=== PATIENT | female | born 2000 | race Caucasian/White ===

== ENCOUNTER 2024-09-28 01:24 | Emergency (ER) | payer BC ==
[~2024-09-28] VITALS: Ht 167.6 cm; Wt 61.2 kg
[2024-09-28] MEDS ORDERED: ONDANSETRON 4 MG/2 ML VIAL ONE (01:47)
[2024-09-28 01:54] LABS: BASOPHILS % (AUTO) 0.1 % (0.0-2.0); EOSINOPHILS # (AUTO) 0.1 K/uL (0.0-0.7); EOSINOPHILS % (AUTO) 0.4 % (0.0-7.0); HEMATOCRIT 45.7 % (31.2-41.9); HEMOGLOBIN 15.2 g/dL (10.9-14.3); LYMPHOCYTES # (AUTO) 0.5 K/uL (0.8-4.8); LYMPHOCYTES % (AUTO) 3.3 % (20.5-51.5); MEAN CORPUSCULAR HEMOGLOBIN 29.2 uug (24.7-32.8); MEAN CORPUSCULAR HGB CONC 33 g/dL (32.3-35.6); MONOCYTES # (AUTO) 0.5 K/uL (0.1-1.30); MONOCYTES % (AUTO) 3.5 % (0.0-11.0); NEUTROPHILS # (AUTO) 13.6 K/uL (1.8-8.9); NEUTROPHILS % (AUTO) 92.7 % (38.5-71.5); PLATELET COUNT (AUTO) 325 K/uL (179-408); RED CELL DISTRIBUTION WIDTH 12.8 % (12.3-17.7); WHITE BLOOD COUNT (AUTO) 14.7 K/uL (3.8-11.8)
[2024-09-28] MEDS: DICYCLOMINE HCL 20 MG TABLET PO STA (01:55)
[2024-09-28 01:56] LABS: DIFFERENTIAL COMMENT 1
[2024-09-28] MEDS: IV NORMAL SALINE 500 ML BAG IV ONE ×2 (01:56→03:09)
[2024-09-28] MEDS: ONDANSETRON 4 MG/2 ML VIAL IV ONE (01:56)
[2024-09-28] MEDS ORDERED: DICYCLOMINE HCL 20 MG TABLET ONE (01:58)
[2024-09-28 02:01] LABS: CALCIUM 8.8 mg/dL (8.5-10.1); CREATININE 0.9 mg/dL (0.6-1.3); POTASSIUM 4.2 mmol/L (3.5-5.1)
[2024-09-28 02:07] LABS: BILIRUBIN,TOTAL 0.6 mg/dL (0.2-1.0); C-REACTIVE PROTEIN 0.39 mg/dL (0.00-0.30); MAGNESIUM 1.8 mg/dL (1.8-2.4); TOTAL PROTEIN, SERUM 8.2 g/dL (6.4-8.2)
[2024-09-28 02:18] LABS: *BILIRUBIN,URIN NEGATIVE (NEGATIVE); *BLOOD, URINE NEGATIVE (NEGATIVE); *CLARITY,URINE CLEAR (CLEAR); *COLOR,URINE YELLOW (YELLOW); *KETONES,URINE 2+ (NEGATIVE); *PROTEIN,URINE TRACE (NEGATIVE); *UROBILINOGEN,URINE 0.2 E.U./dl (NORMAL); LEUKOCYTE ESTERASE ,URINE NEGATIVE (NEGATIVE); NITRITE, URINE NEGATIVE (NEGATIVE); PH,URINE 6.5 (5.0-8.0); UGLUCOSE NEGATIVE (NEGATIVE)
[2024-09-28 02:23] LABS: *URINE HCG, QUAL NEGATIVE (NEGATIVE)
[2024-09-28 02:28] LABS: BACTERIA,URINE NONE SEEN /HPF (NONE SEEN); MUCUS,URINE FEW /LPF (0-FEW); RBC,URINE NONE SEEN /HPF (0-3); SQUAMOUS EPITHELIAL CELL,UR FEW /HPF (NONE SEEN); WBC,URINE NONE SEEN /HPF (0-3)
[2024-09-28] MEDS ORDERED: DICY10CA13 PO (02:50)
[2024-09-28] MEDS ORDERED: ONDA4TAB5 PO (02:50)
[2024-09-28] MEDS ORDERED: METOCLOPRAMIDE HCL 10 MG/2 ML VIAL ONE (02:54)
[2024-09-28] MEDS ORDERED: diphenhydrAMINE 50 MG/1 ML VIAL ONE ×2 (02:55→02:57)
[2024-09-28] MEDS: METOCLOPRAMIDE HCL 10 MG/2 ML VIAL IV ONE (03:08)
[2024-09-28] MEDS: diphenhydrAMINE 50 MG/1 ML VIAL IV ONE (03:08)
[2024-09-28 05:36] VITALS: BP 125/69; TEMP 97.6; O2SAT 100
== END 2024-09-28 05:37 | disposition home or self-care (01) ==
LOC: ER 01:55
DX: R11.2 Nausea with vomiting, unspecified (principal); R19.7 Diarrhea, unspecified; G43.909 Migraine, unspecified, not intractable, without status migrainosus; R07.9 Chest pain, unspecified
CPT/HCPCS: 99284; 96374; 96361; 96375; 80053; 81001; 84703; 83690; 83735; 85025; 86140; 36415; 93005; J1200 ×2; J2765; J2405; J7040 ×2; A4606; A4663